=== PATIENT | female | born 1950 | race Caucasian/White ===

== ENCOUNTER 2016-06-06 11:59 | Observation (INO) | payer BC ==
[~2016-06-06 11:59] MED LIST: ACIDOPHILUS1 CAP PO; ACYCLOVIR; ACYCLOVIR400 M1 PO; ACYCLOVIR400 MG PO; ALPHA LIPOIC A200 MG PO; ALPHA LIPOIC AC50 MG PO; ASPIR 8181 MG PO; ASPIRIN EC81 MG PO; CALCIUM; CALCIUM 500 +1 EAC5 PO; CALCIUM500 M3 PO; CELEXA; CELEXA20 MG PO; CELEXA40 M2 PO; CIPRO500 MG PO; CO Q-10 100 MG1 EAC1 PO; CO Q-10100 M1 PO; COLACE100 MG PO; CYCLOBENZAPRINE10 M1 PO; CYCLOPHOSPHAMID PO; CYTOXAN50 MG PO; D3 DOTS2000 UNIT PO; DEXAMETHASONE; DEXAMETHASONE1 MG PO; DEXAMETHASONE4 M1 PO; DIFLUCAN100 M1 PO; EQL FISH OIL 1,1 CA1 PO; ESTRACE1 M3 PO; FEOSOL325 MG PO; FISH OIL; FISH OIL 1,0001 EA10 PO; FLUDRICORTISON0.1 MG PO; GNP B-COMPLEX1 EACH PO; IRON; IRON1 TA1 PO; IRON325 M3 PO; K-TAB ER10 MEQ PO; LASIX20 M1 PO; LEVOXYL; LEVOXYL25 MCG PO; MAGNESIUM; MAGNESIUM200 MG PO; MAGNESIUM400 MG PO; MULTIVITAMIN; NORCO 5/325 TAB1 TAB PO; POTASSIUM; PREMARIN; PREMARIN0.3 MG PO; REVLIMID25 MG PO; SENOKOT-S (SENN1 TA1 PO; SYNTHROID112 MC1 PO; SYNTHROID25 MCG PO; TERBINAFINE HC250 M1 PO; TRAZODONE HCL50 M1 PO; TYLENOL325 MG PO; VELCADE3.5 MG/VIA IV; VIT B COMPLEX; VIT D3; VITAMIN C1000 M1 PO; VITAMIN C1000 MG PO; VITAMIN D-3400 UNIT PO; VITAMIN D31000 UNI3 PO; ZOFRAN ODT8 MG/TAB PO; ZOMETA4 MG/5 ML IV
[2016-06-06 13:25] LABS: ALCOHOL (ETOH) <10 mg/dl (<10)
[2016-06-06 13:37] LABS: URINE BILIRUBIN NEGATIVE (NEG); URINE BLOOD NEGATIVE (NEG); URINE GLUCOSE (UA) NEGATIVE (NEG); URINE KETONE NEGATIVE (NEG); URINE LEUKOCYTE ESTERASE NEGATIVE (NEG); URINE NITRITE NEGATIVE (NEG); URINE PROTEIN SMALL (NEG); URINE SPECIFIC GRAVITY 1.015 (1.003-1.030)
[2016-06-06 13:38] LABS: URINE APPEARANCE CLEAR; URINE COLOR YELLOW
[2016-06-06 13:38] LABS: PROCALCITONIN <0.05 ng/ml (0.05-0.09)
[2016-06-06 13:46] LABS: URINE EPITHELIAL CELLS 0-2 /[HPF] (0-10); URINE RBC 0 /[HPF] (0-5); URINE WBC 0 /[HPF] (0-5)
[2016-06-06] MEDS ORDERED: REVLIMID PO (14:25)
[2016-06-06] MEDS ORDERED: NINLARO3 MG PO (14:26)
[2016-06-06] MEDS ORDERED: VENTOLIN HFA18 G2 PO (14:44)
[2016-12-25] MEDS ORDERED: CIPRO500 M2 PO (12:35)
[2016-12-25] MEDS ORDERED: VIBRAMYCIN100 M1 PO (12:36)
[2016-12-25] MEDS ORDERED: VIRTUSSIN AC L118 ML PO (12:37)
[2016-12-25] MEDS ORDERED: TRAZODONE HCL50 M1 PO (12:39)
[2016-12-25] MEDS ORDERED: NINLARO2.3 MG PO (12:43)
[2016-12-25] MEDS ORDERED: B-121000 MC2 PO (14:23)
[2016-12-25] MEDS ORDERED: SINGULAIR10 M1 PO (14:23)
[2016-12-25] MEDS ORDERED: FLUDROCORTISON0.1 M1 PO (14:27)
[2016-12-25] MEDS ORDERED: REVLIMID10 M1 PO (14:35)
[2016-12-25] MEDS ORDERED: NORCO 5-325 TA1 EACH PO (14:36)
[2016-12-25] MEDS ORDERED: FEOSOL325 M1 PO (14:40)
[2016-12-25] MEDS ORDERED: FISH OIL 1,0001 EAC9 PO (14:41)
[2016-12-25] MEDS ORDERED: ZOMETA4 MG/5 M1 IV (15:09)
[2016-12-25] MEDS ORDERED: OCTAGAM 10% VIA20 ML IV (15:11)
== END 2016-06-06 21:00 ==
LOC: EDMED 11:59 → EMR2 14:34 → 5WF 16:05
PROVIDERS: Emergency Medicine; ADMIT Internal Medicine
DX: R41.82 Altered mental status, unspecified (principal); R53.1 Weakness; R21 Rash and other nonspecific skin eruption; C90.00 Multiple myeloma not having achieved remission; E03.9 Hypothyroidism, unspecified; J45.40 Moderate persistent asthma, uncomplicated; Z79.82 Long term (current) use of aspirin; Z79.52 Long term (current) use of systemic steroids; Z79.899 Other long term (current) drug therapy; Z87.891 Personal history of nicotine dependence; Z90.710 Acquired absence of both cervix and uterus; Z98.890 Other specified postprocedural states
CPT/HCPCS: G0378; G0480; J7030